=== PATIENT | female | born 1935 | race Caucasian/White ===

== ENCOUNTER 2021-08-26 22:51 | Inpatient (IN) ==
[2021-08-26] MEDS ORDERED: 0.9 % Sodium Chloride 1,000 ML IVC ONE (23:20)
[2021-08-26] MEDS ORDERED: Ondansetron 4 MG/2 ML VIAL IVP ONE (23:20)
[2021-08-27 00:18] LABS: Basophils % 0.3 %; Eosinophils % 0.2 %; Hemoglobin 10.6 g/dL (11.5-15.4); Immature Granulocytes % 0.2 % (0-4); Lymphocytes # 1.3 K/mcL (0.6-4.6); Lymphocytes % 20.1 %; Mean Corpuscular HGB Conc 33.1 g/dL (31.6-35.5); Mean Corpuscular Volume 96.7 fL (83.0-100.0); Mean Platelet Volume 9.6 fL (9.4-12.4); Monocytes % 19.8 %; Neutrophils # 3.7 K/mcL (1.6-8.9); Platelet Count 135 K/mcL (140-400); Red Blood Count 3.31 M/mcL (3.82-4.97); Red Cell Distribution Width 12.4 % (11.5-14.5); Segmented Neutrophils % 59.4 %; White Blood Count 6.3 K/mcL (4.3-11.1)
[2021-08-27 00:19] LABS: Monocytes # 1.3 K/mcL (0.0-1.3)
[2021-08-27 00:24] LABS: INR 1.1; Prothrombin Time 12.3 Seconds (9.4-12.1)
[2021-08-27 00:26] LABS: Activated Partial Thrombo Time 28.8 Seconds (26.0-36.0)
[2021-08-27 00:32] LABS: Platelet Estimate Normal (Normal)
[2021-08-27 00:35] LABS: Adenovirus Not Detected (Not Detect); Bordetella Pertussis Not Detected (Not Detect); Chlamydophila pneumoniae Not Detected (Not Detect); Coronavirus 229E Not Detected (Not Detect); Coronavirus HKU1 Not Detected (Not Detect); Coronavirus NL63 Not Detected (Not Detect); Coronavirus OC43 Not Detected (Not Detect); Human Metapneumovirus Not Detected (Not Detect); Human Rhinovirus/Enterovirus Not Detected (Not Detect); Influenza A Subtype 2009 H1 Not Detected (Not Detect); Influenza B Not Detected (Not Detect); Mycoplasma pneumoniae Not Detected (Not Detect); Parainfluenza Virus 1 Not Detected (Not Detect); Parainfluenza Virus 2 Not Detected (Not Detect); Parainfluenza Virus 3 Not Detected (Not Detect); Parainfluenza Virus 4 DETECTED (Not Detect); Respiratory Syncytial Virus Not Detected (Not Detect); SARS-CoV-2 Not Detected (Not Detect)
[2021-08-27 01:39] LABS: BUN/Creatinine Ratio 33 (6-26); Blood Urea Nitrogen 19 mg/dL (8-23); Calcium < 4.0 mg/dL (8.6-10.3); Carbon Dioxide 13 mEq/L (23-29); Chloride 128 mEq/L (98-107); Glucose 61 mg/dL (70-105); Osmolality,Calculated 298 (280-300); Potassium 2.2 mEq/L (3.5-5.1); Sodium 144 mEq/L (136-145); Troponin I < 0.03 ng/mL (< 0.04); eGFR For African Americans > 60 (> 60); eGFR For Non-African Americans > 60 (> 60)
[2021-08-27] MEDS ORDERED: Potassium Chloride Elixir 20 MEQ/15 ML UDC PO ONE (01:50)
[2021-08-27] MEDS ORDERED: Naloxone 0.4 MG/ML INJ IVP PRN (02:41)
[2021-08-27] MEDS ORDERED: Ondansetron ODT 4 MG TAB.RAPDIS SL PRN (02:41)
[2021-08-27] MEDS ORDERED: Melatonin 3 MG TABLET PO PRN (02:41)
[2021-08-27] MEDS ORDERED: D5% in Water 1,000 ML IVC PRN (02:44)
[2021-08-27] MEDS ORDERED: *HR* Dextrose 50 % in Water (Syg) 50 ML SYRINGE IVP PRN (02:44)
[2021-08-27] MEDS ORDERED: Dextrose Gel 15 GM/37.5 ML TUBE PO PRN ×2 (02:44)
[2021-08-27] MEDS: Calcium Gluconate 1gm/50mL 1 GM/50 ML BAG IVPB PRN ×2 (03:04→04:07)
[2021-08-27 03:53] LABS: Albumin 4.1 g/dL (3.5-5.7); Albumin/Globulin Ratio 1.5 (1.1-2.2); Bilirubin,Indirect 0.3 mg/dL (0.0-1.0); Bilirubin,Total 0.3 mg/dL (0.3-1.0); Globulin 2.8 g/dL (2.4-3.5); Total Protein 6.9 g/dL (6.4-8.9)
[2021-08-27 03:56] LABS: Magnesium 0.9 mg/dL (1.6-2.6)
[2021-08-27] MEDS: Ringers Solution, Lactated 1,000 ML IVC SCH ×3 (04:09→18:31)
[2021-08-27 05:17] LABS: Bacteria,Urine Few per hpf (None-Few); Bilirubin,Urine Negative (Negative); Blood,Urine Negative (Negative); Clarity,Urine Clear (Clear); Color,Urine Light-Yellow (Yellow); Glucose,Urine (UA) Normal (Normal); Ketones,Urine Negative (Negative); Leukocyte Esterase,Urine Large (Negative); Mucus,Urine Few per lpf (None-Few); Nitrite,Urine Positive (Negative); Protein,Urine Negative (Neg-Trace); Specific Gravity,Urine 1.015 (1.010-1.025); Squamous Epithelial Cell,Urine Few per hpf (None-Few); Urobilinogen,Urine Normal (Normal); WBC,Urine TNTC per hpf (0-3)
[2021-08-27 05:32] LABS: Potassium,Urine 41.7 mEq/L; Sodium, Urine 145.6 mEq/L
[2021-08-27 05:42] LABS: % Iron Saturation 10 % (15-50); Iron 22 mcg/dL (50-170); Transferrin 161 mg/dL (203-362)
[2021-08-27 05:48] LABS: Ferritin 263 ng/mL (10-120)
[2021-08-27 07:00] LABS: Folate > 22.3 ng/mL (3.0-16.0); Vitamin B12 > 1500 pg/mL (250-1100)
[2021-08-27 08:47] LABS: Calcium 9.1 mg/dL (8.6-10.3); Potassium 5.5 mEq/L (3.5-5.1)
[2021-08-27] MEDS ORDERED: Acetaminophen 325 MG TABLET PO PRN (11:26)
[2021-08-27 14:18] LABS: Potassium 4.8 mEq/L (3.5-5.1)
[2021-08-27] MEDS: lisinopriL 5 MG TABLET PO SCH (22:13)
[2021-08-28 02:11] LABS: Basophils % 0.2 %; Eosinophils # 0.1 K/mcL (0.0-0.6); Eosinophils % 1.1 %; Hematocrit 31.2 % (35.3-44.9); Hemoglobin 10.2 g/dL (11.5-15.4); Immature Granulocytes % 0.6 % (0-4); Lymphocytes % 30.3 %; Mean Corpuscular HGB Conc 32.7 g/dL (31.6-35.5); Mean Corpuscular Volume 97.8 fL (83.0-100.0); Mean Platelet Volume 9.9 fL (9.4-12.4); Monocytes # 1.1 K/mcL (0.0-1.3); Monocytes % 20.2 %; Neutrophils # 2.6 K/mcL (1.6-8.9); Platelet Count 125 K/mcL (140-400); Red Blood Count 3.19 M/mcL (3.82-4.97); Red Cell Distribution Width 12.3 % (11.5-14.5); Segmented Neutrophils % 47.6 %; White Blood Count 5.4 K/mcL (4.3-11.1)
[2021-08-28 02:17] LABS: Lymphocytes # 1.6 K/mcL (0.6-4.6)
[2021-08-28 02:18] LABS: Calcium 8.9 mg/dL (8.6-10.3); Potassium 4.6 mEq/L (3.5-5.1)
[2021-08-28 03:21] LABS: Platelet Estimate Slight Decrease (Normal)
[2021-08-28] MEDS: lisinopriL 5 MG TABLET PO SCH ×2 (08:59→21:08)
[2021-08-28] MEDS ORDERED: Sennosides/Docusate Sodium TABLET PO PRN (09:53)
[2021-08-28 10:12] LABS: Estimated Average Glucose 123 mg/dl; Hemoglobin A1C 5.9 %
[2021-08-29 01:55] LABS: Calcium 9.2 mg/dL (8.6-10.3); Potassium 4.3 mEq/L (3.5-5.1)
[2021-08-29 06:37] VITALS: BP 136/72; PULSE 69; TEMP 97.7; O2SAT 95
[2021-08-29] MEDS: lisinopriL 5 MG TABLET PO SCH (07:53)
[2021-08-29] MEDS ORDERED: Clotrimazole 1% CRM 15 GM TUBE TP SCH (09:00)
[2021-08-29 12:00] LABS: Bilirubin,Urine Negative (Negative); Blood,Urine Trace (Negative); Clarity,Urine Turbid (Clear); Color,Urine Light-Yellow (Yellow); Glucose,Urine (UA) Normal (Normal); Ketones,Urine Negative (Negative); Leukocyte Esterase,Urine Large (Negative); Nitrite,Urine Negative (Negative); Protein,Urine Trace mg/dL (Neg-Trace); Specific Gravity,Urine 1.011 (1.010-1.025); Urobilinogen,Urine Normal (Normal)
== END 2021-08-29 12:17 | disposition home or self-care (01) | DRG 194 ==
LOC: EMEROOARM 22:51 → 3BNU 22:51 → SUATTDRO 08-27 02:18 → 3BNU 08-27 03:28
PROVIDERS: ADMIT Internal Medicine; ATTEND Internal Medicine